=== PATIENT | female | born 1995 | race Caucasian/White ===

== ENCOUNTER 2025-01-19 11:32 | Emergency (ER) | payer MEDICAID ==
[~2025-01-19] VITALS: Ht 160 cm; Wt 59.0 kg
[2025-01-19] MEDS ORDERED: CYCLOBENZAPRINE 10 MG TABLET ONE (12:15)
[2025-01-19] MEDS ORDERED: ACETAMINOPHEN ES 500 MG TABLET ONE (12:15)
[2025-01-19] MEDS: CYCLOBENZAPRINE 10 MG TABLET PO ONE (12:20)
[2025-01-19] MEDS: ACETAMINOPHEN ES 500 MG TABLET PO ONE (12:21)
[2025-01-19 14:18] VITALS: BP 107/59; TEMP 98.1; O2SAT 99
[2025-01-19] MEDS ORDERED: NAPR-1009 PO (14:30)
[2025-01-19] MEDS ORDERED: CYCL10TA9 PO (14:30)
[2025-01-19] MEDS ORDERED: ACET-2605 PO (14:30)
[2025-01-19] MEDS ORDERED: KETOROLAC TROMETHAMINE 15 MG/ML VIAL ONE (14:36)
[2025-01-19] MEDS: KETOROLAC TROMETHAMINE 15 MG/ML VIAL IM ONE (14:41)
== END 2025-01-19 14:51 | disposition home or self-care (01) ==
LOC: ER 11:35
DX: M54.2 Cervicalgia (principal); Y04.0XXA Assault by unarmed brawl or fight, initial encounter; Y93.89 Activity, other specified; Y92.39 Other specified sports and athletic area as the place of occurrence of the external cause; Y99.8 Other external cause status
CPT/HCPCS: 99285; 72125; 96372; 84703; J1885